=== PATIENT | female | born 1995 | race Caucasian/White ===

== ENCOUNTER → 2018-03-28 | Observation (INO) ==
--- NOTE | 2018-03-27 23:36 | OB/GYN Progress Note ---
Date of Encounter: 03/27/18 Time of Encounter: 23:33 - Assessment and Plan (1) 35 weeks gestation of Current Visit: Yes Status: Acute (2) contractions Current Visit: Yes Status: Acute Discharge appears to be physiologic. SVE 1cm. No cervical change noted on repeat exam. Pt admits to drinking very little water today. Will PO hydrate and discharge home if contractions spread out. Subjective - Subjective Interval history: 23 year-old presenting at 35w1d with c/o multiple small trickles of fluid today with the biggest gush being around 1900 this evening. She reports the discharge is clear. No bleeding today. Good FM. She reports some mild contractions. No urinary sx. No vaginal itching or burning. Antepartum ROS: loss of fluid, movement normal, contractions, no vaginal bleeding Objective - Vital Signs Vital Signs: Intake and Output 03/27/18 03/27/18 03/27/18 07:59 15:59 23:59 Other: Weight 94.7 kg Patient Weight 03/27/18 23:59 Weight 94.7 kg - Exam FHR: category 1 FHR comments: NST reactive Auscultation: bilateral: normal Abdomen: Present: soft, gravid Uterus: Absent: tenderness Cervical dilation: 1 Comments: SSE with scant, thin, white discharge. Negative pooling, negative nitrazine, negative fern.
== END | disposition home or self-care (01) ==
LOC: 1NENULAB
PROVIDERS: ADMIT Registered Nurse; ATTEND Registered Nurse

== ENCOUNTER 2018-05-02 23:00 | Inpatient (IN) ==
[2018-05-02] MEDS ORDERED: *HR* Nalbuphine 10 MG/ML AMPUL IVP PRN (23:08)
[2018-05-02] MEDS ORDERED: Metoclopramide 10 MG/2 ML VIAL IVP PRN (23:08)
[2018-05-02] MEDS ORDERED: Ondansetron 4 MG/2 ML VIAL IVP PRN (23:08)
[2018-05-02] MEDS ORDERED: Famotidine 20 MG/2 ML VIAL IVP PRN (23:08)
[2018-05-02] MEDS ORDERED: Naloxone 0.4 MG/ML INJ IVP PRN (23:08)
[2018-05-02] MEDS ORDERED: Ringers Solution, Lactated 1,000 ML ONE (23:09)
[2018-05-02] MEDS ORDERED: Ringers Solution, Lactated 1,000 ML IVC SCH (23:15)
[2018-05-02] MEDS ORDERED: EPHEDrine 50 MG/ML VIAL IVP PRN (23:42)
[2018-05-02 23:43] LABS: Basophils % 0.2 %; Eosinophils % 0.4 %; Hematocrit 38.6 % (35.3-44.9); Hemoglobin 12.5 g/dL (11.5-15.4); Immature Granulocytes % 0.3 % (0-4); Lymphocytes # 2.4 K/mcL (0.6-4.6); Lymphocytes % 24.5 %; Mean Corpuscular HGB Conc 32.4 g/dL (31.6-35.5); Mean Corpuscular Hemoglobin 26.5 pg (28.0-33.3); Mean Platelet Volume 12.7 fL (9.4-12.4); Monocytes # 0.8 K/mcL (0.0-1.3); Monocytes % 7.8 %; Neutrophils # 6.5 K/mcL (1.6-8.9); Platelet Count 204 K/mcL (140-400); Red Blood Count 4.71 M/mcL (3.82-4.97); Red Cell Distribution Width 14.7 % (11.5-14.5); Segmented Neutrophils % 66.8 %
[2018-05-02] MEDS ORDERED: Epidural Premix (fent/bupiv) 110 ML EP SCH (23:45)
--- NOTE | 2018-05-03 00:03 | OB/GYN History & Physical ---
Date of Encounter: 05/03/18 Time of Encounter: 00:01 Assessment and Plan (1) 40 weeks gestation of Current visit: Yes Status: Acute (2) Uterine contractions Current visit: Yes Status: Acute Admit to labor and delivery GBS negative Nubain and epidural as desired If no cervical change in 2 hours start Pitocin per policy Anticipate History of Present Illness Chief complaint: Contractions HPI: Ms. Zhang is a 23 year old female 40+3 weeks gestation presents to triage with complaints of contractions since 8:00 this morning. Patient states patient contractions started this morning and they have been slowly getting stronger and more intense throughout the day, presents to triage for evaluation. Patient is also scheduled for induction of labor this morning. care with Dr. Husain, uncomplicated course with the exception of left ventricular echogenic foci found on anatomy scan, resolved at 28 weeks, occasional heartburn, and not taking vitamins. Labs: O+, rubella and varicella immune, GBS negative all other serologies negative Past Med Surg Social Fam HX - Past Medical History Source: patient Medical history: no medical history Psychiatric history: no psych history - Past Surgical History Surgical History: no surgical history - Social History Smoking Status: Never smoker Alcohol use: none Drug use: none - Family History Mother Living Status: Still Living Hx Family Neurologic Disorders: Yes (epilepsy) Obstetrical History - Pregnancies : 1 Para: 0 Term: 0 : 0 Ab's: 0 Livin Medications and Allergies No Known Home Drugs 03/27/18 [History] 3 Allergy/AdvReac Type Severity Reaction Status Date / Time No Known Allergies Allergy Verified 04/18/18 08:15 Exam - Constitutional Constitutional: well developed, well nourished, no acute distress - Neck Neck exam: full ROM - Lungs Respiratory exam: CTAB - Cardiovascular Cardiovascular exam: RRR - Abdomen Abdomen: Present: gravid, non tender - Extremities Extremities exam: normal capillary refill, normal inspection Deep Tendon Reflex Grade: 1+ Diminished - Cervix Dilation: 4 Effacement: 90 Station: -1 - Anus/Rectum Anus/Rectum: Present: normal perianal skin Results Result Diagrams: 05/02/18 23:09 Abnormal lab results MCV 82.0 fL (83.0-100.0) L 05/02/18 23:09 MCH 26.5 pg (28.0-33.3) L 05/02/18 23:09 RDW 14.7 % (11.5-14.5) H 05/02/18 23:09 MPV 12.7 fL (9.4-12.4) H 05/02/18 23:09 All other labs normal. - VTE Reasons for not Prescribing Prophylaxis: Treatment not Indicated - Low risk for VTE
[2018-05-03] MEDS ORDERED: Oxytocin 20 units/ LR 1000 mL 20 UNIT/1,000 ML BAG IVC SCH ×2 (00:15→10:15)
--- NOTE | 2018-05-03 00:20 | Anesthesia Evaluation PreOp ---
Date of Encounter: 05/03/18 Time of Encounter: 00:04 - Past History Planned Operation: vaginal del, G1 induction Cardiac History: Denies any Significant Hx Pulmonary History: Denies Any Significant HX THERMOMETER TESTER History: Denies Any Significant HX Other Medical History: Denies Any Significant HX Anesthesia History: No Prior Anesthetic Complications, Past Anesthesia (T/A, no family hx reported) Alcohol Use: none Drug use: none Medications and Allergies No Known Home Drugs 03/27/18 [History] 3 Allergy/AdvReac Type Severity Reaction Status Date / Time No Known Allergies Allergy Verified 04/18/18 08:15 Anesthesia Results - Labs 05/02/18 23:09 Anesthesia Exam - HEENT Pupil (Motor): Pupils equal Mallampati: III Teeth: Normal Oral Opening: Greater than 3 - THERMOMETER TESTER LOC: Oriented THERMOMETER TESTER Motor: Normal RUE, Normal LUE, Normal RLE, Normal LLE, Normal Face THERMOMETER TESTER Sensory: Normal: RUE, LUE, RLE, LLE, Face - Cardiac Rhythm: Regular Murmur: None - Pulmonary Breath Sounds: bilateral Clear Respiratory Effort: Symmetrical Anesthesia Assess/Plan ASA Score: 2 Modified Quinton Scale for Level of Consciousness: Cooperative, oriented, and tranquil Anesthetic Plan: General, Regional Monitoring Plan: Standard Monitors Recovery Plan: PACU
[2018-05-03] MEDS ORDERED: Epidural Premix (fent/bupiv) 110 ML EP ONE (00:22)
[2018-05-03] MEDS ORDERED: Lidocaine -MPF 2% 5 ML VIAL ONE ×2 (00:23→06:54)
[2018-05-03 01:04] LABS: Amphetamine Screen,Urine Negative ng/mL (Cutoff=1000); Barbiturate Screen,Urine Negative ng/mL (Cutoff=200); Benzodiazepines Screen,Urine Negative ng/mL (Cutoff=200); Cannabinoid Screen,Urine Negative ng/mL (Cutoff = 50); Cocaine Screen,Urine Negative ng/mL (Cutoff= 300); Opiate Screen,Urine Negative ng/mL (Cutoff=300); Phencyclidine Screen,Urine Negative ng/mL (Cutoff=25)
--- NOTE | 2018-05-03 02:12 | Anesthesia Procedures ---
Date of Encounter: 05/03/18 Time of Encounter: 01:48 Procedures: Anesthesia - Epidural/Spinal Patient ID/Chart reviewed: Yes Patient examined: Yes OB Eval: Gestational age: term OB Eval: : 1 OB Eval: Contractions: Non-stressed pattern Consent Obtained: Yes Supplemental Oxygen: None/Room Air Site Prep: Aseptic Technique, Sterile prep and drape, 0.5% Chlorhexidine/Alcohol Patient position: upright Local Anesthetic: Lidocaine 1% Amount of Local Anesthetic used: 2 Touhy Needle Gauge: 18 Touhy Needle Depth (cm): 8 Catheter Depth at Skin (cm): 12 Test Dose (1.5% Lido + Epi): Volume given (mls): 3 Test Dose Result: Negative Loading Dose: Other: 10ml from solution Loading Dose Administered: Thru Catheter Infusion Med: 0.125% Bupivacaine w/ 2 mcg/ml Fentanyl Infusion Rate (mls/hr): [address]: Tegaderm, Tape Interspace Used: L3-L4 Loss of Resistance (KENNETH): Yes (saline) Blood: No CSF: No Paresthesia: No Procedure: vss though out procedure, FHR stable per RN's
[2018-05-03 02:20] LABS: Alanine Aminotransferase 7 Units/L (7-52); Aspartate Amino Transferase 12 Units/L (13-39); BUN/Creatinine Ratio 14 (6-26); Blood Urea Nitrogen 10 mg/dL (6-20); Lactate Dehydrogenase 192 Units/L (140-271); eGFR For Non-African Americans > 60 (> 60)
[2018-05-03] MEDS ORDERED: Lidocaine/EPI 1:200k 2% PF 20 ML VIAL ONE (02:41)
[2018-05-03] MEDS ORDERED: *HR* ROPIVACAINE 1% PF 100 MG/10 ML VIAL ONE (02:42)
[2018-05-03] MEDS ORDERED: Ondansetron 4 MG/2 ML VIAL ONE (03:12)
--- NOTE | 2018-05-03 07:10 | Anesthesia Progress Note ---
Date of Encounter: 05/03/18 Time of Encounter: 06:52 Anesthesia Note - Note Note: 05/03/18 07:07 patient c/o pain lower half. etoh to skin not feeling from t10 up and partial sensory from t10 down. plan to rebolus and if not better to replace catheter at different level. dressing intact.
--- NOTE | 2018-05-03 07:20 | OB Labor Progress Note ---
Date of Encounter: 05/03/18 Time of Encounter: 07:18 Labor Progress Note - Subjective Subjective: Comfortable with epidural - Cervix Cervix: 9/100/0 - Heart Tones Heart Tones: 170/moderate/-accels/early and variable decels - [place]: q2 - Interventions Interventions: AROM for large amount of thick meconium fluid - Plan Plan: Frequent repositioning with peanut ball Anticipate
[2018-05-03] MEDS ORDERED: Measles/Mumps/Rubella Vacc 0.5 ML VIAL SQ PRN (10:03)
[2018-05-03] MEDS ORDERED: Rho Immune Globulin 1,500 UNIT SYRINGE IM PRN (10:03)
[2018-05-03] MEDS ORDERED: Acetaminophen 325 MG TABLET PO PRN (10:03)
--- NOTE | 2018-05-03 10:12 | OB/GYN Procedure Note ---
Delivery - Delivery Date: 05/03/18 Provider: Edy Laird Intrapartum events: meconium Delivery induction: none Delivery monitor: external FHT, external uterine Anesthesia: local, epidural Quantitated Blood Loss: 200 - (s) Infant A Infant Delivery Date: 05/03/18 Delivery Time: 09:43 Presentation: vertex Position: WEI Gender: Female Viability: Viable Weight Gram: 3.325 kg at 1 minute: 8 at 5 mins: 9 Placenta: spontaneous Cord: 3 umbilical vessels - Repair Episiotomy: none Laceration Description: Perineal - 3rd Degree (partial/50% through muscle) - Complications Delivery complications: meconium - Disposition Mom disposition: stable in LDR disposition: stable in LDR - Comments Comments: Pt s/p of liveborn female from [facility] presentation without difficulty. Spontaneous delivery of normal placenta with 3vc. Thick MSF was noted and was bulb syringe suctioned at time of delivery. Nursery personnel and respiratory were at delivery. Partial 3rd degree laceration was repaired with 2 -0 and 3-0 Vicryl under local and epidural anesthesia. EBL 200 cc.
[2018-05-03] MEDS ORDERED: Benzocaine/Menthol 56 GM AEROSOL SPRAY TP PRN (20:45)
[2018-05-03] MEDS: Ibuprofen 600 MG TABLET PO PRN (22:16)
[2018-05-04] MEDS: Ibuprofen 600 MG TABLET PO PRN ×2 (05:27→12:53)
[2018-05-04 05:49] LABS: Basophils % 0.2 %; Eosinophils # 0.1 K/mcL (0.0-0.6); Eosinophils % 0.4 %; Hematocrit 36.5 % (35.3-44.9); Hemoglobin 11.6 g/dL (11.5-15.4); Immature Granulocytes % 0.4 % (0-4); Lymphocytes # 3.4 K/mcL (0.6-4.6); Lymphocytes % 16.2 %; Mean Corpuscular HGB Conc 31.8 g/dL (31.6-35.5); Mean Corpuscular Hemoglobin 26.8 pg (28.0-33.3); Mean Corpuscular Volume 84.3 fL (83.0-100.0); Mean Platelet Volume 12.4 fL (9.4-12.4); Monocytes # 1.2 K/mcL (0.0-1.3); Monocytes % 5.5 %; Platelet Count 183 K/mcL (140-400); Red Blood Count 4.33 M/mcL (3.82-4.97); Red Cell Distribution Width 15.1 % (11.5-14.5); Segmented Neutrophils % 77.3 %
[2018-05-04 05:54] LABS: Neutrophils # 16.2 K/mcL (1.6-8.9)
[2018-05-04] MEDS ORDERED: Prenatal Vit/FA 1 EACH TABLET PO SCH (09:00)
[2018-05-04 09:20] VITALS: BP 121/81
--- NOTE | 2018-05-04 10:47 | Discharge Summary ---
Date of Encounter: 05/04/18 Time of Encounter: 10:45 - Discharge Diagnosis (1) Vaginal delivery Priority: Primary Status: Acute Comments: Pain well controlled with by mouth pain meds Vital signs stable Tolerating regular diet Lochia light Voiding independently Passing flatus, no BM yet Ambulating independently Discharge home today (2) Breast feeding status of mother Priority: Secondary Status: Acute Comments: Community resources provided - Discharge Medications Prescriptions: Ibuprofen [Motrin] 600 mg PO Q6HR PRN #30 tablet PRN Reason: Moderate Pain Docusate [Colace] 100 mg PO BID #30 capsule Home Medications: Acetaminophen [Tylenol] 650 mg PO Q6HR PRN tablet 05/04/18 [Rx] Benzocaine/Menthol [place]bin [Dermoplast Corbin] 1 appl TP QID PRN aerosol 05/04/18 [Rx] Docusate [Colace] 100 mg PO BID #30 capsule 05/04/18 [Rx] Ibuprofen [Motrin] 600 mg PO Q6HR PRN #30 tablet 05/04/18 [Rx] Vit/FA 1 each PO DAILY tablet 05/04/18 [Rx] Allergies/Adverse Reactions: 3 Allergy/AdvReac Type Severity Reaction Status Date / Time No Known Allergies Allergy Verified 05/03/18 00:44 Data Procedures and tests throughout hospitalization: Laboratory Tests 05/02/18 05/02/18 05/02/18 23:08 23:09 23:46 WBC 9.8 RBC 4.71 Hgb 12.5 Hct 38.6 MCV 82.0 L MCH 26.5 L MCHC 32.4 RDW 14.7 H Plt Count 204 MPV 12.7 H Immature Gran % 0.3 Seg Neutrophils % 66.8 Lymphocytes % 24.5 Monocytes % 7.8 Eosinophils % 0.4 Basophils % 0.2 Neutrophils # 6.5 Lymphocytes # 2.4 Monocytes # 0.8 Eosinophils # 0.0 Basophils # 0.0 BUN 10 Creatinine 0.71 Est GFR ( Amer) > 60 Est GFR (Non-Af Amer) > 60 BUN/Creatinine Ratio 14 Uric Acid 6.0 AST 12 L ALT 7 Lactate Dehydrogenase 192 Urine Opiates Screen Negative Ur Barbiturates Screen Negative Ur Phencyclidine Scrn Negative Ur Amphetamines Screen Negative U Benzodiazepines Scrn Negative Urine Cocaine Screen Negative U Marijuana (THC) Screen Negative Ur Drug Screen Interp See Below 05/04/18 05:27 WBC 21.0 H D RBC 4.33 Hgb 11.6 Hct 36.5 MCV 84.3 MCH 26.8 L MCHC 31.8 RDW 15.1 H Plt Count 183 MPV 12.4 Immature Gran % 0.4 Seg Neutrophils % 77.3 Lymphocytes % 16.2 Monocytes % 5.5 Eosinophils % 0.4 Basophils % 0.2 Neutrophils # 16.2 H Lymphocytes # 3.4 Monocytes # 1.2 Eosinophils # 0.1 Basophils # 0.0 BUN Creatinine Est GFR ( Amer) Est GFR (Non-Af Amer) BUN/Creatinine Ratio Uric Acid AST ALT Lactate Dehydrogenase Urine Opiates Screen Ur Barbiturates Screen Ur Phencyclidine Scrn Ur Amphetamines Screen U Benzodiazepines Scrn Urine Cocaine Screen U Marijuana (THC) Screen Ur Drug Screen Interp Labs on day of discharge: Labs from last 24 hours 05/04/18 05:27 WBC 21.0 H D RBC 4.33 Hgb 11.6 Hct 36.5 MCV 84.3 MCH 26.8 L MCHC 31.8 RDW 15.1 H Plt Count 183 MPV 12.4 Immature Gran % 0.4 Seg Neutrophils % 77.3 Lymphocytes % 16.2 Monocytes % 5.5 Eosinophils % 0.4 Basophils % 0.2 Neutrophils # 16.2 H Lymphocytes # 3.4 Monocytes # 1.2 Eosinophils # 0.1 Basophils # 0.0 Date of admission: 05/02/18 23:00 Primary care physician: PCP NONE Consults: 05/03/18 10:03 Consult to Assurance Engineer [CONS] Routine Comment: Vaginal delivery, consult needed Discharging clinician: Madison Smyth Anticipated date of discharge: 05/04/18 - Patient Status Disposition: Home, Self-Care Condition: Good Functional capacity at discharge: independent ambulation Overall status at discharge: patient is progressing back to baseline - Discharge Instructions Follow Up With: NONE,PCP [Primary Care Provider] - Tony Boyd Jr, MD [Family Provider] - Day Husain DO [Partnered Physician] - - Diet and Activity Activity: increase activity as tolerated Diet: regular diet Hospital Course Procedures: Vaginal delivery Reason for admission: active labor, IUP at term Delivery: Episiotomy: none Laceration: 3rd degree Other procedures: none complications: none Discharge diagnosis: IUP at term delivered Marvell baby: female Time Attestation: Total time spent providing and/or coordinating discharge services: Time Spent: Less than 30 minutes Exam - Constitutional Vitals: Temp Pulse Resp BP Pulse Ox 97.8 F 68 16 121/81 97 05/04/18 09:19 05/04/18 09:19 05/04/18 09:19 05/04/18 09:19 05/04/18 09:19 General appearance IM: A&O X 3 - Respiratory Respiratory exam: Present: CTAB - Cardiovascular Cardiovascular exam IM: Present: RRR, +S1, +S2 - GI/Abdominal GI/Abdominal exam IM: normal bowel sounds, no peritoneal signs - Rectal Rectal exam: deferred - Uterine Tone: Firm Uterus Position: At Umbilicus, Midline - Extremities Exam Extremities exam IM: Present: normal capillary refill, normal inspection, pedal edema, radial pulses palpable and symmetrical - Neurological Exam Neurological exam: alert, CN II-XII intact, normal gait, oriented X3, reflexes normal, no focal deficits, strengths equal and symetr throughout - Psychiatric Additional comments: Signs and symptoms of depression discussed with patient and family. They are all verbalizes understanding of when to seek help.
== END 2018-05-04 14:30 | disposition home or self-care (01) | DRG 542 ==
LOC: 1NENULAB 23:00 → 1NENUOBS 05-03 12:05
PROVIDERS: ADMIT Advanced Practice Midwife; ATTEND Obstetrics & Gynecology